=== PATIENT | female | born 1965 | race Caucasian/White ===

== ENCOUNTER 2024-04-07 14:48 | Outpatient (AMB) | payer OTHER, SELFPAY ==
--- NOTE | 2024-04-07 14:57 | A.OFFPC_ITS ---
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 Machine Required: No Allergies Sulfa (Sulfonamide Antibiotics) Allergy (Severe, Verified 04/07/24 15:00) Vomiting Tobacco use date assessed: 04/07/24 Dental Screening Dental Screen Date: 04/07/24 Did you have a dental visit in the last 12 months?: Yes Did you have a dental problem in the last 6 months where you did not have access to dental care?: No Was dental information given to patient?: Patient has dentist HPI HPI Comments History of Present Illness Details Patient is a 58-year-old female with a history of migraines insomnia, seizures, hypertension, hip pain, left breast cancer and SVT presenting for follow-up Heme/Onc: Recent left breast cancer. Stage II. Chest surgeon and underwent surgery. She is up-to-date Migraine headaches are stable. Ten Fioricet every 4 hours as needed for migraine flares. She saw Neurology years ago. Fioricet is the only medication that has worked for her. Her past treatments have included Imitrex, amitriptyline, nortriptyline, gabapentin all of which were ineffective. She is on a chronic calcium channel tray for history of SVT which did not affect the frequency of her headaches. Her headaches are at the neck and go up behind the right eye and can become severe. She uses clobetasol, hot packs. She has nausea and, with her headaches and sensitivity to light and sound. She does take ondansetron as needed for stomach upset. She has a history of remote seizures. She saw Neurology and her workup was negative. Initially she was on Keppra but it was discontinued. She has no interval seizures CV: On Cardizem, hydrochlorothiazide. Her blood pressure is well-controlled. She had 1 episode of SVT a couple years ago and was hospitalized for a few days. She does follow with [facility]. Insomnia on long-term Ambien 10 mg nightly. Musculoskeletal: She has a history of left hip pain which radiates to the anterior thigh. She has had x-rays performed Colonoscopy: Performed at age 49 ROS CONSTITUTIONAL: Denies weight loss, fever and chills. HEENT: Denies changes in vision and hearing. RESPIRATORY: Denies SOB and cough. CV: Denies palpitations and CP GI: Denies abdominal pain, nausea, vomiting and diarrhea. : Denies dysuria and urinary frequency. MSK: Denies new myalgia and joint pain. SKIN: Denies rash and pruritus. NEUROLOGICAL: Denies headache PSYCHIATRIC: Denies recent changes in mood. PHYSICAL EXAM: GENERAL: Alert and oriented x 3. NAD EYES: EOMI. Anicteric. HENT: Moist mucous membranes. No scleral icterus. No cervical lymphadenopathy. LUNGS: Clear to auscultation bilaterally. CARDIOVASCULAR: Regular rate and rhythm. No murmur. No JVD. ABDOMEN: Soft, non-tender +bs EXTREMITIES: No edema. Non-tender. SKIN: No rashes or lesions. Warm. NEUROLOGIC: No focal neurological deficits. CN II-XII grossly intact PSYCHIATRIC: Cooperative. Appropriate mood and affect [facility] Medical History SVT (supraventricular tachycardia) Right hip pain History of seizure Cough Breast cancer Blood pressure elevated without history of HTN Surgical History H/O breast biopsy S/P right rotator cuff repair Family History Mother Cancer of breast Uterine cancer Father Alzheimer dementia Hx of CABG CAD (coronary artery disease) Myocardial infarction Brother Type 2 diabetes mellitus Social History Housing: House Patient Tobacco Use Status: Never used Tobacco e-Cigarette/Vaping Use: Never Used Second Hand Smoke Exposure: No service: No Current occupational status: employed 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 Current occupational exposures/hazards: No Cognitive needs: No Hearing needs: No Vision needs: Yes (glasses) Questionnaire PHQ-9 Over the last 2 weeks, how often have you been bothered by any of the following problems? 1. Little interest or pleasure in doing things: not at all 2. Feeling down, depressed, or hopeless: not at all 3. Trouble falling or staying asleep, or sleeping too much: not at all 4. Feeling tired or having little energy: not at all 5. Poor appetite or overeating: not at all 6. Feeling bad about yourself - or that you are a failure or have let yourself or your family down: not at all 7. Trouble concentrating on things, such as reading the newspaper or watching television: not at all 8. Moving or speaking so slowly that other people could have noticed. Or the opposite - being so fidgety or restless that you have been moving around a lot more than usual: not at all 9. Thoughts that you would be better off or of hurting yourself in some way: not at all Total score: 0 Depression Screening Interpretation: Negative (neg) Depression Screening Done: Yes 76052 - PHQ-9 Billing: Yes Source: Developed by Drs. Freeman Kaye, Mariana Cruz, Darwin Hoffmann and colleagues, with an educational karthik from [employer]. Thrive Questionnaire Date Thrive assessed: 04/05/24 I am a: Patient What is your living situation today?: I have a steady place to live Within the past 12 months, did the food you bought not last and you didn't have the money to get more?: Never true Within the past 12 months, did you worry whether your food would run out before you got money to buy more?: Never true Do you have trouble paying for medicines?: No Do you have trouble getting transportation to medical appointments?: No Do you have trouble paying your heating and electricity bill?: No Do you have trouble taking care of your child, family member or friend?: No Do you have trouble with day-to-day activities such as bathing, preparing meals, shopping, managing finances, etc.?: No Are you currently unemployed and looking for a job?: No Are you interested in more education?: No Please select the resources that you would like help with: None Currently or been in a relationship where the following occur: No concerns reported THRIVE Score: 0 AUDIT C Alcohol Use Questionnaire (AUDIT-C) 1. How often do you have a drink containing alcohol?: 2-3 times a week 2. How many drinks containing alcohol do you have on a typical day when you are drinking?: 1 or 2 3. How often do you have six or more drinks on one occasion?: Less than monthly Total Score: 4 CALVIN-7 AMB Questionnaire CALVIN-7 Date CALVIN - 7 assessed: 04/07/24 Feeling nervous, anxious, or on edge: 0 = Not at all Not being able to stop or control worryin = Not at all Worrying too much about different things: 1 = Several days Trouble relaxin = Not at all Being so restless that it is hard to sit still: 0 = Not at all Feeling afraid as if something awful might happen: 0 = Not at all Source: Developed by Drs. Freeman Kaye, Mariana Cruz, Darwin Hoffmann and colleagues, with an educational karthik from [employer]. CALVIN-7 Assessment Billing CALVIN-7 Assessment Tool: CALVIN-7 Assessment 99055 Physical exam (Primary Care) Vital Signs: Last Vital Signs Temp 98.5 F 04/07/24 15:03 Pulse 73 04/07/24 15:03 Resp 12 04/07/24 15:03 BP 124/74 04/07/24 15:03 Pulse Ox 98 04/07/24 15:03 Oxygen Delivery Method Room Air 04/07/24 15:03 BMI result Body Mass Index 25.0 Tobacco/Smoking Status: Tobacco use Status Tobacco use date assessed 04/07/24 04/07/24 15:06 Patient Tobacco Use Status Never used Tobacco 04/07/24 15:06 e-Cigarette/Vaping Use Never Used 04/07/24 15:06 PHQ-9: PHQ-9 Score PHQ-9: Total score 0 04/16/24 13:46 Depression Screening Interpretation: Negative (neg) Thrive Assessment: Date of Thrive Assessment Date Thrive assessed 04/05/24 04/07/24 14:58 Currently or been in a relationship where the following occur: No concerns reported Assessment and Plan Assessment & Plan (1) Migraine: Code(s): G43.909 - Migraine, unspecified, not intractable, without status migrainosus Qualifiers: Migraine type: migraine (< 15 days per month) with aura Status ran rainosus presence: without status migrainosus Intractability: not intractable Qualified Code(s): G43.109 - Migraine with aura, not intractable, without status migrainosus Plan: stable (2) Insomnia: Code(s): G47.00 - Insomnia, unspecified Qualifiers: Insomnia type: primary Qualified Code(s): F51.01 - Primary insomnia Plan: stable on zolpidem (3) Hypertension: Code(s): I10 - Essential (primary) hypertension Qualifiers: Hypertension type: primary hypertension Qualified Code(s): I10 - Esse ntial (primary) hypertension Plan: stable on current medications Orders: Orders Comprehensive Met. Panel 04/07/24 Z13.0 - Encounter for screening for diseases of the blood and blood-forming organs and certain disorders involving the immune mechanism, Z13.228 - Encounter for screening for other metabolic disorders, Z13.220 - Encounter for screening for lipoid disorders Lipid Panel 04/07/24 Z13.0 - Encounter for screening for diseases of the blood and blood-forming organs and certain disorders involving the immune mechanism, Z13.228 - Encounter for screening for other metabolic disorders, Z13.220 - Encou nter for screening for lipoid disorders Complete Blood Count Auto Diff 04/07/24 Z13.0 - Encounter for screening for diseases of the blood and blood-forming organs and certain disorders involving the immune mechanism, Z13.228 - Encounter for screening for other metabolic disorders, Z13.220 - Encounter for screening for lipoid disorders TSH reflex Free T4 04/07/24 Z13.0 - Encounter for screening for diseases of the blood and blood-forming organs and certain disorders involving the immune mechanism, Z13.228 - Encounter for screening for other metabolic disorders, Z13.220 - Encounter for screening for lipoid disorders Medications: Changed From etiybpaefl-znpcvsltswyfp-uwxe 50-325-40 mg 1 tab PO Q6H 28 days PRN 112 tabs 0RF headache To wddjbamidj-aldzhiykdpbaf-vssz 50-325-40 mg 1-2 tab oral every 4 hours as needed for headache for 28 days 168 tabs 5RF headache 28 days Refilled zolpidem 10 mg PO BEDTIME PRN 60 tabs 5RF sleep G47.00 - Insomnia, unspecified Coding Level of Care Code Est Pt Level 5 (56823) Diagnoses Migraine with aura and without status migrainosus, not intractable G43.109 Migraine type: migraine (< 15 days per month) with aura Status migrainosus presence: without status migrainosus Intractability: not intractable Primary insomnia F51.01 Insomnia type: primary Primary hypertension I10 Hypertension type: primary hypertension Additional Codes CALVIN-7 Assessment Billing - CALVIN-7 Assessment Tool: CALVIN-7 Assessment [id number] ([id number]) Time Spent (min) 43
[2024-04-07 15:03] VITALS: BP 124/74; PULSE 73; RESP 12; TEMP 36.9; O2SAT 98; BMI 25.0
== END 2024-04-07 15:32 | disposition home or self-care (01) ==
PROVIDERS: PCP Internal Medicine; Visit Provider Internal Medicine
DX: G43.109 Migraine with aura, not intractable, without status migrainosus (principal); F51.01 Primary insomnia; I10 Essential (primary) hypertension

== ENCOUNTER → 2024-04-07 14:48 | Outpatient (BNVA) | payer OTHER, SELFPAY | PROVIDERS: PCP Internal Medicine; Visit Provider Internal Medicine | DX: G43.109 Migraine with aura, not intractable, without status migrainosus (principal); F51.01 Primary insomnia; I10 Essential (primary) hypertension; Z79.899 Other long term (current) drug therapy | CPT/HCPCS: 96127 ==

== ENCOUNTER 2024-09-24 11:22 | Outpatient (AMB) | payer OTHER, SELFPAY ==
--- NOTE | 2024-09-24 11:46 | A.OFFPC_ITS ---
Vital Signs 09/24/24 11:52 Height 5 ft 2.4 in Weight 140 lb BMI 25.3 BP 126/72 Blood Pressure Location Lt brachial Position Sitting Respiration 12 Pulse 72 Pulse Source Pulse Oximeter Temp 98 F Temp Source Oral Pulse Oximetry (%) 99 Oxygen Delivery Method Room Air Intake Visit Reasons: strep/ear infection Intake Note: Congestion and cough since July 2024. Throat pain worse past three days. Right ear pain started three days ago. Left ear pain started yesterday. Allergies Sulfa (Sulfonamide Antibiotics) Allergy (Severe, Verified 04/07/24 15:00) Vomiting Tobacco use date assessed: 04/07/24 Dental Screening Dental Screen Date: 04/07/24 HPI HPI Comments History of Present Illness Details Patient is a 58-year-old female with a history of migraines insomnia, seizures, hypertension, hip pain, left breast cancer and SVT presenting for sick visit Reports four week history of sinus congestion, ear fullness, PND and cough. Has felt more fatigued. OTC medications without sufficient relief Heme/Onc: Recent left breast cancer. Stage II. Chest surgeon and underwent surgery. She is up-to-date Migraine headaches are stable. Ten Fioricet every 4 hours as needed for migraine flares. She saw Neurology years ago. Fioricet is the only medication that has worked for her. Her past treatments have included Imitrex, amitriptyline, nortriptyline, gabapentin all of which were ineffective. She is on a chronic calcium channel tray for history of SVT which did not affect the frequency of her headaches. Her headaches are at the neck and go up behind the right eye and can become severe. She uses clobetasol, hot packs. She has n ausea and, with her headaches and sensitivity to light and sound. She does take ondansetron as needed for stomach upset. She has a history of remote seizures. She saw Neurology and her workup was negative. Initially she was on Keppra but it was discontinued. She has no interval seizures CV: On Cardizem, hydrochlorothiazide. Her blood pressure is well-controlled. She had 1 episode of SVT a couple years ago and was hospitalized for a few days. She does follow with [facility]. Insomnia on long-term Ambien 10 mg nightly. Musculoskeletal: She has a history of left hip pain which radiates to the anterior thigh. She has had x-rays performed Colonoscopy: Performed at age 49 ROS see HPI PHYSICAL EXAM: GENERAL: Alert and oriented x 3. NAD EYES: EOMI. Anicteric. HENT: Moist mucous membranes. No scleral icterus. Bilateral middle ear effusions. Normal TM, maxillary tenderness with boggy nasal mucosa LUNGS: Clear to auscultation bilaterally. CARDIOVASCULAR: Regular rate and rhythm. No murmur. No JVD. ABDOMEN: Soft, non-tender +bs EXTREMITIES: No edema. Non-tender. SKIN: No rashes or lesions. Warm. NEUROLOGIC: No focal neurological deficits. CN II-XII grossly intact PSYCHIATRIC: Cooperative. Appropriate mood and affect [facility] Medical History SVT (supraventricular tachycardia) Right hip pain History of seizure Cough Breast cancer Blood pressure elevated without history of HTN Surgical History H/O breast biopsy S/P right rotator cuff repair Family History Mother Cancer of breast Uterine cancer Father Alzheimer dementia Hx of CABG CAD (coronary artery disease) Myocardial infarction Brother Type 2 diabetes mellitus Social History Housing: House Patient Tobacco Use Status: Never used Tobacco e-Cigarette/Vaping Use: Never Used Second Hand Smoke Exposure: No service: No Current occupational status: employed 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 Current occupational exposures/hazards: No Cognitive needs: No Hearing needs: No Vision needs: Yes (glasses) Questionnaire PHQ-9 Over the last 2 weeks, how often have you been bothered by any of the following problems? 1. Little interest or pleasure in doing things: not at all 2. Feeling down, depressed, or hopeless: not at all 3. Trouble falling or staying asleep, or sleeping too much: not at all 4. Feeling tired or having little energy: not at all 5. Poor appetite or overeating: not at all 6. Feeling bad about yourself - or that you are a failure or have let yourself or your family down: not at all 7. Trouble concentrating on things, such as reading the newspaper or watching television: not at all 8. Moving or speaking so slowly that other people could have noticed. Or the opposite - being so fidgety or restless that you have been moving around a lot more than usual: not at all 9. Thoughts that you would be better off or of hurting yourself in some way: not at all Total score: 0 Depression Screening Interpretation: Negative Depression Screening Done: Yes 02109 - PHQ-9 Billing: Yes Source: Developed by Drs. Freeman Kaye, Mariana Cruz, Darwin Hoffmann and colleagues, with an educational karthik from [employer]. Thrive Questionnaire Date Thrive assessed: 09/24/24 I am a: Patient What is your living situation today?: I have a steady place to live Within the past 12 months, did the food you bought not last and you didn't have the money to get more?: Never true Within the past 12 months, did you worry whether your food would run out before you got money to buy more?: Never true Do you have trouble paying for medicines?: No Do you have trouble getting transportation to medical appointments?: No Do you have trouble paying your heating and electricity bill?: No Do you have trouble taking care of your child, family member or friend?: No Do you have trouble with day-to-day activities such as bathing, preparing meals, shopping, managing finances, etc.?: No Are you currently unemployed and looking for a job?: No Are you interested in more education?: No Please select the resources that you would like help with: None Currently or been in a relationship where the following occur: No concerns reported THRIVE Score: 0 AUDIT C Alcohol Use Questionnaire (AUDIT-C) 1. How often do you have a drink containing alcohol?: 2-4 times a month 2. How many drinks containing alcohol do you have on a typical day when you are drinking?: 1 or 2 3. How often do you have six or more drinks on one occasion?: Never Total Score: 2 CALVIN-7 AMB Questionnaire CALVIN-7 Date CALVIN - 7 assessed: 04/07/24 Feeling nervous, anxious, or on edge: 0 = Not at all Not being able to stop or control worryin = Not at all Worrying too much about different things: 0 = Not at all Trouble relaxin = Not at all Being so restless that it is hard to sit still: 0 = Not at all Becoming easily annoyed or irritable: 0 = Not at all Feeling afraid as if something awful might happen: 0 = Not at all Total CALVIN-7 score (0-4 normal; 5-9 mild; 10-14 moderate; 15-21 severe): 0 Source: Developed by Drs. Freeman Kaye, Mariana Cruz, Darwin Hoffmann and colleagues, with an educational karthik from [employer]. Physical exam (Primary Care) Vital Signs: Last Vital Signs Temp 98 F 09/24/24 11:52 Pulse 72 09/24/24 11:52 Resp 12 09/24/24 11:52 BP 126/72 09/24/24 11:52 Pulse Ox 99 09/24/24 11:52 Oxygen Delivery Method Room Air 09/24/24 11:52 BMI result Body Mass Index 25.3 Tobacco/Smoking Status: Tobacco use Status Tobacco use date assessed 04/07/24 09/24/24 11:49 Patient Tobacco Use Status Never used Tobacco 09/24/24 11:49 e-Cigarette/Vaping Use Never Used 09/24/24 11:49 PHQ-9: PHQ-9 Score PHQ-9: Total score 0 09/24/24 12:03 Depression Screening Interpretation: Negative Thrive Assessment: Date of Thrive Assessment Date Thrive assessed 09/24/24 09/24/24 11:49 Currently or been in a relationship where the following occur: No concerns reported Results AMB Rapid Strep AMB Rapid Strep Negative Last Edit by Lorena Monahan CMA on 09/24/24 11:5 8 Results Reviewed Results Reviewed: Laboratory Last Values Strep Scn Rapid Clinic Negative 09/24/24 11:55 Coding Level of Care Code Est Pt Level 4 (01040) Diagnoses Subacute maxillary sinusitis J01.00 Sinusitis location: maxillary Chronicity: subacute Additional Codes PHQ-9 - 49435 - PHQ-9 Billing: Yes ([id number]) Assessment & Plan Assessment & Plan (1) Sinusitis: Code(s): J32.9 - Chronic sinusitis, unspecified Category: Medical Qualifiers: Sinusitis location: maxillary Chronicity: subacute Qualified Code(s): J01.00 - Acute maxillary sinusitis, unspecified Plan: Doxycycline and prednisone sent She will follow up for persistent or worsening symptoms Orders: Orders AMB Rapid Strep Screen Today J02.9 - Acute pharyngitis, unspecified Medications: New diltiazem HCl CD 120 mg PO DAILY 90 caps 3RF doxycycline hyclate 100 mg PO BID 20 tabs 0RF 10 days prednisone 40 mg (2 x 20 mg) PO DAILY 14 tabs 0RF 7 days Refilled zolpidem 10 mg PO BEDTIME PRN 60 tabs 5RF sleep G47.00 - Insomnia, unspecified
[2024-09-24 11:52] VITALS: BP 126/72; PULSE 72; RESP 12; TEMP 36.6; O2SAT 99; BMI 25.3
== END 2024-09-24 12:13 | disposition home or self-care (01) ==
PROVIDERS: PCP Internal Medicine; Visit Provider Internal Medicine
DX: J01.00 Acute maxillary sinusitis, unspecified (principal); J02.9 Acute pharyngitis, unspecified

== ENCOUNTER → 2024-09-24 11:22 | Outpatient (BNVA) | payer OTHER, SELFPAY | PROVIDERS: PCP Internal Medicine; Visit Provider Internal Medicine | DX: J01.00 Acute maxillary sinusitis, unspecified (principal); J02.9 Acute pharyngitis, unspecified | CPT/HCPCS: 87880; 96127 ==

== ENCOUNTER 2024-11-03 13:33 | Outpatient (AMB) | payer OTHER, SELFPAY ==
--- NOTE | 2024-11-03 13:42 | A.OFFPC_ITS ---
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 Stage II. Follows with [facility]. She is up-to-date. Onc in December with mammogram thereafter Migraine headaches are stable in frequent and severity. Fioricet every 4 hours as needed for migraine flares. She saw Neurology remotely. Fioricet is the only medication that has worked for her. Her past treatments have included Imitrex, amitriptyline, nortriptyline, gabapentin all of which were ineffective. She is on a chronic calcium channel tray for history of SVT which did not affect the frequency of her headaches. Her headaches are at the neck and go up behind the right eye and can become severe. She uses clobetasol, hot packs. She has nausea and, with her headaches and sensitivity to light and sound. She does take ondansetron as needed for stomach upset. She has a history of remote seizures. She saw Neurology and her workup was negative. Initially she was on Keppra but it was discontinued. She has no interval seizures CV: On Cardizem, hydrochlorothiazide. Her blood pressure is well-controlled. She had 1 episode of SVT a couple years ago and was hospitalized for a few days. She does follow with [facility]. Insomnia on long-term Ambien 10 mg nightly. Musculoskeletal: She has a history of left hip pain which radiates to the anterior thigh. She has had x-rays performed. This has been stable. Colonoscopy: Performed at age 49. Referred today. ROS see HPI PHYSICAL EXAM: GENERAL: Alert and oriented x 3. NAD EYES: EOMI. Anicteric. HENT: Moist mucous membranes. No scleral icterus. LUNGS: Clear to auscultation bilaterally. CARDIOVASCULAR: Regular rate and rhythm. No murmur. No JVD. ABDOMEN: Soft, non-tender +bs EXTREMITIES: No edema. Non-tender. SKIN: No rashes or lesions. Warm. NEUROLOGIC: No focal neurological deficits. CN II-XII grossly intact PSYCHIATRIC: Cooperative. Appropriate mood and affect [facility] Medical History SVT (supraventricular tachycardia) Right hip pain History of seizure Cough Breast cancer Blood pressure elevated without history of HTN Surgical History H/O breast biopsy S/P right rotator cuff repair Family History Mother Cancer of breast Uterine cancer Father Alzheimer dementia Hx of CABG CAD (coronary artery disease) Myocardial infarction Brother Type 2 diabetes mellitus Social History Housing: House Patient Tobacco Use Status: Never used Tobacco e-Cigarette/Vaping Use: Never Used Second Hand Smoke Exposure: No service: No Current occupational status: employed 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 Current occupational exposures/hazards: No Cognitive needs: No Hearing needs: No Vision needs: Yes (glasses) Questionnaire PHQ-9 Over the last 2 weeks, how often have you been bothered by any of the following problems? 1. Little interest or pleasure in doing things: not at all 2. Feeling down, depressed, or hopeless: not at all 3. Trouble falling or staying asleep, or sleeping too much: not at all 4. Feeling tired or having little energy: not at all 5. Poor appetite or overeating: not at all 6. Feeling bad about yourself - or that you are a failure or have let yourself or your family down: not at all 7. Trouble concentrating on things, such as reading the newspaper or watching television: not at all 8. Moving or speaking so slowly that other people could have noticed. Or the opposite - being so fidgety or restless that you have been moving around a lot more than usual: not at all 9. Thoughts that you would be better off or of hurting yourself in some way: not at all Total score: 0 Depression Screening Interpretation: Negative Depression Screening Done: Yes 68119 - PHQ-9 Billing: Yes Source: Developed by Drs. Freeman Kaye, Mariana Cruz, Darwin Hoffmann and colleagues, with an educational karthik from [employer]. Thrive Questionnaire Date Thrive assessed: 11/03/24 I am a: Patient What is your living situation today?: I have a steady place to live Within the past 12 months, did the food you bought not last and you didn't have the money to get more?: Never true Within the past 12 months, did you worry whether your food would run out before you got money to buy more?: Never true Do you have trouble paying for medicines?: No Do you have trouble getting transportation to medical appointments?: No Do you have trouble paying your heating and electricity bill?: No Do you have trouble taking care of your child, family member or friend?: No Do you have trouble with day-to-day activities such as bathing, preparing meals, shopping, managing finances, etc.?: No Are you currently unemployed and looking for a job?: No Are you interested in more education?: No Please select the resources that you would like help with: None Currently or been in a relationship where the following occur: No concerns reported THRIVE Score: 0 AUDIT C Alcohol Use Questionnaire (AUDIT-C) 1. How often do you have a drink containing alcohol?: 2-3 times a week 2. How many drinks containing alcohol do you have on a typical day when you are drinking?: 1 or 2 3. How often do you have six or more drinks on one occasion?: Never Total Score: 3 CALVIN-7 AMB Questionnaire CALVIN-7 Date CALVIN - 7 assessed: 11/03/24 Feeling nervous, anxious, or on edge: 0 = Not at all Not being able to stop or control worryin = Not at all Worrying too much about different things: 0 = Not at all Trouble relaxin = Not at all Being so restless that it is hard to sit still: 0 = Not at all Becoming easily annoyed or irritable: 0 = Not at all Feeling afraid as if something awful might happen: 0 = Not at all Total CALVIN-7 score (0-4 normal; 5-9 mild; 10-14 moderate; 15-21 severe): 0 Source: Developed by Drs. Freeman Kaye, Mariana Cruz, Darwin Hoffmann and colleagues, with an educational karthik from [employer]. CALVIN-7 Assessment Billing CALVIN-7 Assessment Tool: CALVIN-7 Assessment 26901 Physical exam (Primary Care) Vital Signs: Last Vital Signs Pulse 74 11/03/24 13:45 Resp 12 11/03/24 13:45 BP 128/80 11/03/24 13:45 Pulse Ox 97 11/03/24 13:45 Oxygen Delivery Method Room Air 11/03/24 13:45 BMI result Body Mass Index 24.6 Tobacco/Smoking Status: Tobacco use Status Tobacco use date assessed 04/07/24 11/03/24 13:47 Patient Tobacco Use Status Never used Tobacco 11/03/24 13:47 e-Cigarette/Vaping Use Never Used 11/03/24 13:47 PHQ-9: PHQ-9 Score PHQ-9: Total score 0 11/03/24 14:03 Depression Screening Interpretation: Negative Thrive Assessment: Date of Thrive Assessment Date Thrive assessed 11/03/24 11/03/24 13:47 Currently or been in a relationship where the following occur: No concerns reported Coding Level of Care Code Est Pt Prev Care 40-64y(11565) Diagnoses Physical exam Z00.00 Primary hypertension I10 Hypertension type: primary hypertension Migraine with aura and without status migrainosus, not intractable G43.109 Intractability: not intractable Migraine type: migraine (< 15 days per month) with aura Status migrainosus presence: without status migrainosus Primary insomnia F51.01 Insomnia type: primary Additional Codes CALVIN-7 Assessment Billing - CALVIN-7 Assessment Tool: CALVIN-7 Assessment 14093 ([id number]) PHQ-9 - 74442 - PHQ-9 Billing: Yes ([id number]) Assessment & Plan Assessment & Plan (1) Physical exam: Code(s): Z00.00 - Encounter for general adult medical examination without abnormal findings Category: Medical (2) Hypertension: Code(s): I10 - Essential (primary) hypertension Category: Medical Qualifiers: Hypertension type: primary hypertension Qualified Code(s): I10 - Essential (primary) hypertension (3) Migraine: Code(s): G43.909 - Migraine, unspecified, not intractable, without status migrainosus Category: Medical Qualifiers: Intractability: not intractable Migraine type: migraine (< 15 days per month) with aura Status migrainosus presence: without status migrainosus Qualified Code(s): G43.109 - Migraine with aura, not intractable, without status migrainosus (4) Insomnia: Code(s): G47.00 - Insomnia, unspecified Category: Medical Qualifiers: Insomnia type: primary Qualified Code(s): F51.01 - Primary insomnia Plan 59 year old for physical exam Interval history reviewed Chronic medical conditions are stable. Blood pressure is well controlled Insomnia is stable on zolpidem Labs ordered Referral to GI placed for colonoscopy Orders: Orders Complete Blood Count Auto Diff Today Z12.11 - Encounter for screening for malignant neoplasm of colon, Z13.220 - Encounter for screening for lipoid disorders, Z13.228 - Encounter for screening for other metabolic disorders Comprehensive Met. Panel Today Z12.11 - Encounter for screening for malignant neoplasm of colon, Z13.220 - Encounter for screening for lipoid disorders, Z13.228 - Encounter for screening for other metabolic disorders Lipid Panel Today Z12.11 - Encounter for screening for malignant neoplasm of colon, Z13.220 - Encounter for screening for lipoid disorders, Z13.228 - Encounter for screening for other metabolic disorders TSH reflex Free T4 Today Z12.11 - Encounter for screening for malignant neoplasm of colon, Z13.220 - Encounter for screening for lipoid disorders, Z13.228 - Encounter for screening for other metabolic disorders Referrals Gastroenterology Referral Z12.11 - Encounter for screening for malignant neoplasm of colon
[2024-11-03 13:45] VITALS: BP 128/80; PULSE 74; RESP 12; O2SAT 97; BMI 24.6
== END 2024-11-03 14:18 | disposition home or self-care (01) ==
LOC: HO.HMCFM 13:33
PROVIDERS: PCP Internal Medicine; Visit Provider Internal Medicine
DX: Z00.00 Encounter for general adult medical examination without abnormal findings (principal); I10 Essential (primary) hypertension; G43.109 Migraine with aura, not intractable, without status migrainosus; F51.01 Primary insomnia

== ENCOUNTER → 2024-11-03 13:33 | Outpatient (BNVA) | payer OTHER, SELFPAY | PROVIDERS: PCP Internal Medicine; Visit Provider Internal Medicine | DX: Z00.00 Encounter for general adult medical examination without abnormal findings (principal); I10 Essential (primary) hypertension; G43.109 Migraine with aura, not intractable, without status migrainosus; F51.01 Primary insomnia; Z85.3 Personal history of malignant neoplasm of breast; Z79.899 Other long term (current) drug therapy | CPT/HCPCS: 96127 ==

== ENCOUNTER 2025-04-09 10:06 | Outpatient (AMB) | payer OTHER, SELFPAY ==
--- NOTE | 2025-04-09 10:10 | MHC.OFFVIS ---
Vital Signs 04/09/25 10:15 Height 5 ft 3 in Weight 125 lb BMI 22.1 BP 132/82 Blood Pressure Location Rt brachial Position Sitting Pulse 82 Pulse Source Pulse Oximeter Pulse Oximetry (%) 99 Oxygen Delivery Method Room Air Intake Visit Reasons: [place] screening Intake Note: New pt for recall colo screening. Last ~ 10 years ago. CC: Pt denies any GI sx or concerns at this time. Blueprint Cutter Required: No Accompanied by: Self / Same As Patient Allergies Sulfa (Sulfonamide Antibiotics) Allergy (Severe, Verified 04/09/25 10:10) Vomiting HPI HPI [place] screening: Details: 59 year old? female with past medical history of hypertension, migraine headaches, insomnia is here today for pre colonoscopy screening.? Patient was sent to us by her PCP.? Last colonoscopy 10 years ago.? Patient denies any gastrointestinal symptoms in the past or at present.? Denies any personal or family history of gastrointestinal disease, colon polyps, or CRC.? Denies history of difficulty with sedation or anesthesia in the past.? Negative for history of sleep apnea.? Denies any history of cardiac, renal, pulmonary, or hepatic disease.?? No history of infectious? diseases like hepatitis A, B, C, HIV or tuberculosis.? Patient is not on any anticoagulation PFSH Medical History SVT (supraventricular tachycardia) Right hip pain History of seizure Cough Breast cancer Blood pressure elevated without history of HTN Surgical History History of colonoscopy H/O breast biopsy S/P right rotator cuff repair Family History Mother Cancer of breast Uterine cancer Father Alzheimer dementia Hx of CABG CAD (coronary artery disease) Myocardial infarction Brother Type 2 diabetes mellitus Social History Housing: House Patient Tobacco Use Status: Never used Tobacco e-Cigarette/Vaping Use: Never Used Second Hand Smoke Exposure: No service: No Current occupational status: employed 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 Current occupational exposures/hazards: No Cognitive needs: No Hearing needs: No Vision needs: Yes (glasses) Review of Systems Const Denies weight gain and Denies weight loss ENT Reports no additional complaints, Denies dysphagia and Denies odynophagia Card Reports no additional complaints Resp Reports no additional complaints GI Denies abdominal pain, Denies belching, Denies melena, Denies bloating, Denies change in bowel habits, Denies dysphagia, Denies excessive flatus, Denies dyspepsia, Denies heartburn, Denies diarrhea, Denies loose stools, Denies nausea, Denies odynophagia and Denies vomiting Musc Reports no additional complaints Neuro Reports no additional complaints Psych Reports no additional complaints Endo Reports no additional complaints Physical Exam Vital Signs: BMI result Body Mass Index 22.1 Const General: healthy appearing, no acute distress and well developed Nutritional Appearance: well nourished Orientation/consciousness: patient oriented x3 Resp Effort & Inspection: normal respiratory effort, able to speak in complete sentences, no tracheal deviation and symmetric chest movement Auscultation: clear to auscultation bilaterally Cardio Rate: regular rate GI Inspection: Yes normal to inspection and No distended Palpation (GI): Soft to palpation, not firm, nontender and No hepatosplenomegaly present Auscultation: normal bowel sounds General: Yes no CVA tenderness Back/Spine/Pelvis Back: no CVA tenderness Skin General skin exam: elasticity normal, turgor normal and dry skin Neuro General: patient oriented x3 Psych Appearance: grossly normal Mental Status: mental status grossly normal Assessment & Plan Assessment & Plan (1) Screening for colon cancer: Code(s): Z12.11 - Encounter for screening for malignant neoplasm of colon Category: Medical Plan Patient denies any GI, cardiac or respiratory symptoms.? Denies any issues with anesthesia in the past.? Denies any history of sleep apnea.? No history infectious diseases in the past or present.? Not on any anticoagulation therapy.? No family or personal history of colon cancer or polyps.? Patient denies melena, hematochezia, unintentional weight loss or ribbon like stools.? Discussed at length the pre-procedure,? prep, diet & medications as well as what to expect prior, during and after the procedure.?? Stressed the importance of good bowel prep.? Recommended the use of Vaseline or Calmoseptine OTC & baby wipes with bowel movements to promote comfort.? ?Patient verbalizes understanding and agrees to plan of care.? She was given the opportunity to ask questions and all questions answered.? We will see her after the procedure.? Orders: Referrals GI Procedure Notification Z12.11 - Encounter for screening for malignant neoplasm of colon Medications: New bisacodyl (Dulcolax (bisacodyl)) take 4 tabs at noon the day before your colonoscopy 20 mg (4 x 5 mg) PO ONCE 4 tabs 0RF constipation 1 day Z12.11 - Encounter for screening for malignant neoplasm of colon polyethylene glycol 3350 (Miralax) As directed by gastroenterology department at [facility] 238 grams PO ONCE 238 grams 0RF Z12.11 - Encounter for screening for malignant neoplasm of colon Coding Level of Care Code New Pt Level 3 (16057) Diagnoses Screening for colon cancer Z12.11 Time Spent (min) 40 Comment 30 minutes spent with patient and additional 10 minutes spent reviewing her records
[2025-04-09 10:15] VITALS: BP 132/82; PULSE 82; O2SAT 99; BMI 22.1
== END 2025-04-09 11:21 | disposition home or self-care (01) ==
LOC: HO.HGI 10:06
PROVIDERS: PCP Internal Medicine; Visit Provider Nurse Practitioner Family
DX: Z01.818 Encounter for other preprocedural examination (principal); Z12.11 Encounter for screening for malignant neoplasm of colon
CPT/HCPCS: 99203

== ENCOUNTER 2025-05-04 11:06 | Outpatient (AMB) | payer OTHER, SELFPAY ==
[2025-05-04 11:12] VITALS: BP 142/90; PULSE 87; RESP 12; O2SAT 97; BMI 22.2
--- NOTE | 2025-05-04 11:12 | MHC.PC.OV ---
Vital Signs 05/04/25 11:12 05/04/25 11:21 Height 5 ft 3 in Weight 125 lb 8 oz BMI 22.2 BP 142/90 H 120/84 Blood Pressure Location Lt brachial Lt brachial Position Sitting Sitting Respiration 12 Pulse 87 Pulse Source Pulse Oximeter Pulse Oximetry (%) 97 Oxygen Delivery Method Room Air Intake Visit Reasons: f/up - see comments Intake Note: Follow up [employer] Web Developer Required: No Allergies Sulfa (Sulfonamide Antibiotics) Allergy (Severe, Verified 05/04/25 11:12) Vomiting Tobacco use date assessed: 04/07/24 Dental Screening Dental Screen Date: 04/07/24 HPI HPI Comments History of Present Illness Details Patient is a 59-year-old female with a history of migraines insomnia, seizures, hypertension, hip pain, left breast cancer and SVT presenting for follow up Heme/Onc: History of left breast cancer. Stage II. Follows with [facility]. She is up-to-date. Neuro: Migraine headaches are stable in frequent and severity. Fioricet every 4 hours as needed for migraine flares. She saw Neurology remotely. Fioricet is the only medication that has worked for her. Her past treatments have included Imitrex, amitriptyline, nortriptyline, gabapentin all of which were ineffective. She is on a chronic calcium channel tray for history of SVT which did not affect the frequency of her headaches. Her headaches are at the neck and go up behind the right eye and can become severe. She uses clobetasol, hot packs. She has nausea and, with her headaches and sensitivity to light and sound. She does take ondansetron as needed for stomach upset. She has a history of remote seizures. She saw Neurology and her workup was negative. Initially she was on Keppra but it was discontinued. She has no interval seizures CV: On Cardizem, hydrochlorothiazide. 120/84. She had 1 episode of SVT a couple years ago and was hospitalized for a few days. She does follow with [facility]. Insomnia on long-term Ambien 10 mg nightly. Musculoskeletal: She has a history of left hip pain which radiates to the anterior thigh. She has had x-rays performed. This has been stable. Colonoscopy: Performed at age 49. Referred today. ROS see HPI PHYSICAL EXAM: GENERAL: Alert and oriented x 3. NAD EYES: EOMI. Anicteric. HENT: Moist mucous membranes. No scleral icterus. LUNGS: Clear to auscultation bilaterally. CARDIOVASCULAR: Regular rate and rhythm. No murmur. No JVD. ABDOMEN: Soft, non-tender +bs EXTREMITIES: No edema. Non-tender. SKIN: No rashes or lesions. Warm. NEUROLOGIC: No focal neurological deficits. CN II-XII grossly intact PSYCHIATRIC: Cooperative. Appropriate mood and affect [facility] Medical History SVT (supraventricular tachycardia) Right hip pain History of seizure Cough Breast cancer Blood pressure elevated without history of HTN Surgical History History of colonoscopy H/O breast biopsy S/P right rotator cuff repair Family History Mother Cancer of breast Uterine cancer Father Alzheimer dementia Hx of CABG CAD (coronary artery disease) Myocardial infarction Brother Type 2 diabetes mellitus Social History Housing: House Alcohol intake: current Patient Tobacco Use Status: Never used Tobacco e-Cigarette/Vaping Use: Never Used Second Hand Smoke Exposure: No service: No Current occupational status: employed 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 Current occupational exposures/hazards: No Cognitive needs: No Hearing needs: No Vision needs: Yes (glasses) Questionnaire Thrive Questionnaire Date Thrive assessed: 09/24/24 I am a: Patient What is your living situation today?: I have a steady place to live Within the past 12 months, did the food you bought not last and you didn't have the money to get more?: Never true Within the past 12 months, did you worry whether your food would run out before you got money to buy more?: Never true Do you have trouble paying for medicines?: No Do you have trouble getting transportation to medical appointments?: No Do you have trouble paying your heating and electricity bill?: No Do you have trouble taking care of your child, family member or friend?: No Do you have trouble with day-to-day activities such as bathing, preparing meals, shopping, managing finances, etc.?: No Are you currently unemployed and looking for a job?: No Are you interested in more education?: No Please select the resources that you would like help with: None Currently or been in a relationship where the following occur: No concerns reported THRIVE Score: 0 CALVIN-7 AMB Questionnaire CALVIN-7 Date CALVIN - 7 assessed: 11/03/24 Source: Developed by Drs. Freeman Kaye, Mariana Cruz, Darwin Hoffmann and colleagues, with an educational karthik from [email or web address]. Physical exam (Primary Care) Vital Signs: Last Vital Signs Pulse 87 05/04/25 11:12 Resp 12 05/04/25 11:12 BP 120/84 05/04/25 11:21 Pulse Ox 97 05/04/25 11:12 Oxygen Delivery Method Room Air 05/04/25 11:12 BMI result Body Mass Index 22.2 Tobacco/Smoking Status: Tobacco use Status Tobacco use date assessed 04/07/24 05/04/25 11:18 Patient Tobacco Use Status Never used Tobacco 05/04/25 11:22 e-Cigarette/Vaping Use Never Used 05/04/25 11:22 Thrive Assessment: Date of Thrive Assessment Date Thrive assessed 09/24/24 05/04/25 11:18 Currently or been in a relationship where the following occur: No concerns reported Coding Level of Care Code Est Pt Level 4 (47069) Diagnoses Primary hypertension I10 Hypertension type: primary hypertension Migraine with aura and without status migrainosus, not intractable G43.109 Intractability: not intractable Migraine type: migraine (< 15 days per month) with aura Status migrainosus presence: without status migrainosus Primary insomnia F51.01 Insomnia type: primary Assessment & Plan Assessment & Plan (1) Hypertension: Code(s): I10 - Essential (primary) hypertension Category: Medical Qualifiers: Hypertension type: primary hypertension Qualified Code(s): I10 - Essential (primary) hypertension (2) Migraine: Code(s): G43.909 - Migraine, unspecified, not intractable, without status migrainosus Category: Medical Qualifiers: Intractability: not intractable Migraine type: migraine (< 15 days per month) with aura Status migrainosus presence: without status migrainosus Qualified Code(s): G43.109 - Migraine with aura, not intractable, without status migrainosus (3) Insomnia: Code(s): G47.00 - Insomnia, unspecified Category: Medical Qualifiers: Insomnia type: primary Qualified Code(s): F51.01 - Primary insomnia Plan 59 year old female for follow up Insomnia is stable on zolpidem Hypertension is well controlled on current medications Doxycycline short term for acne Medications: New doxycycline hyclate 100 mg PO BID 10 tabs 0RF Changed From [id number]-[id number]-[id number] 50-325-40 mg 1 - 2 tabs PO Q4H PRN 168 tabs 0RF pain G43.109 - Migraine with aura, not intractable, without status migrainosus To eqwoipnnnd-aexcusauwiahy-mnlz 50-325-40 mg 1 - 2 tabs PO Q4H PRN 168 tabs 3RF pain G43.109 - Migraine with aura, not intractable, without status migrainosus
[2025-05-04 11:21] VITALS: BP 120/84
== END 2025-05-04 11:33 | disposition home or self-care (01) ==
LOC: HO.HMCFM 11:06
PROVIDERS: PCP Internal Medicine; Visit Provider Internal Medicine
DX: I10 Essential (primary) hypertension (principal); G43.109 Migraine with aura, not intractable, without status migrainosus; F51.01 Primary insomnia

== ENCOUNTER 2025-07-02 08:17 | Day surgery (SDC) | payer OTHER, SELFPAY ==
--- NOTE | 2025-06-29 14:50 | P.CONAN_ITS ---
Documented by User: Laurie Farah NP 06/29/25 14:51 HPI - Anesthesia Eval Consult details Narrative: 59yo F for Colonoscopy SVT x 1 years ago. On cardizem. Follows [facility] Cardiology [facility] Active Problems Active Problems: All Active Problems Screening for colon cancer (Acute) Physical exam (Acute) Sinusitis (Acute) Hypertension (Acute) Screening for hyperlipidemia (Acute) Screening for metabolic disorder (Acute) Screening, deficiency anemia, iron (Acute) Migraine (Acute) Insomnia (Acute) Past Medical History Medical History (Updated 07/02/25 @ 09:08 by Yary Wilson RN) Migraines HTN (hypertension) SVT (supraventricular tachycardia) Right hip pain History of seizure Breast cancer Family History Family History Mother Cancer of breast Uterine cancer Father Alzheimer dementia Hx of CABG CAD (coronary artery disease) Myocardial infarction Brother Type 2 diabetes mellitus Surgical History Surgical History History of lumpectomy of left breast History of colonoscopy H/O breast biopsy S/P right rotator cuff repair Social History Social History Housing: House Alcohol intake: current Patient Tobacco Use Status: Never used Tobacco e-Cigarette/Vaping Use: Never Used Second Hand Smoke Exposure: No Use of substances other than those prescribed or required for medical reasons: No Are you DNR?: No Advance Directives: No Advance Directives Information Provided: Yes service: No Current occupational status: employed 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 Current occupational exposures/hazards: No Cognitive needs: No Hearing needs: No Vision needs: Yes (glasses) Meds Allergies Allergy/AdvReac Type Severity Reaction Status Date / Time Sulfa (Sulfonamide Allergy Severe Vomiting Verified 07/02/25 08:39 Antibiotics) Assessment and Plan Assessment Anesthesia Assessment: Chart Reviewed Documented by User: Tracie Dickinson MD 07/02/25 09:22 [facility] Past Medical History Medical History (Updated 07/02/25 @ 09:08 by Yary Wilson, RN) Migraines HTN (hypertension) SVT (supraventricular tachycardia) Right hip pain History of seizure Breast cancer Family History Family History Mother Cancer of breast Uterine cancer Father Alzheimer dementia Hx of CABG CAD (coronary artery disease) Myocardial infarction Brother Type 2 diabetes mellitus Family history of problems with anesthesia: No Surgical History Surgical History History of lumpectomy of left breast History of colonoscopy H/O breast biopsy S/P right rotator cuff repair History of Problems with Anesthesia: No Social History Social History Housing: House Alcohol intake: current Patient Tobacco Use Status: Never used Tobacco e-Cigarette/Vaping Use: Never Used Second Hand Smoke Exposure: No Use of substances other than those prescribed or required for medical reasons: No Are you DNR?: No Advance Directives: No Advance Directives Information Provided: Yes service: No Current occupational status: employed 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 Current occupational exposures/hazards: No Cognitive needs: No Hearing needs: No Vision needs: Yes (glasses) Meds Allergies Allergy/AdvReac Type Severity Reaction Status Date / Time Sulfa (Sulfonamide Allergy Severe Vomiting Verified 07/02/25 08:39 Antibiotics) Exam Airway Mallampati Class: II TM Dist: >3cm Neck ROM: Full Heart: rrr Lungs: cta Assessment and Plan Assessment Anesthesia Assessment: Anesthesia Plan Discussed Final Anesthetic Review Family History of Problems with Anesthesia: No History of Problems with Anesthesia: No NPO: Yes ASA Class: II Final Preanesthetic Review: No Changes in Pt Med Stat, Meds/Allgs Chart Reviewed and Consent Obtained/Reviewed Patient Risk: Low Procedure Risk: Low Anesthetic Plan Anesthetic Plan: MAC: Disposition: Standard PACU
[2025-06-30 13:35] VITALS: BMI 22.1
[2025-07-02 08:46] VITALS: BMI 21.3
--- NOTE | 2025-07-02 08:51 | P.HPSUR_ITS ---
Pre-Procedural Eval Section A - 24 Hr Update-Section A only Date of Service: 07/02/25 The patient is an INPATIENT: No The patient has been examined within 24 hours of the surgical procedure. The History & Physical has been completed within 30 days and I have reviewed it.: No Section B - Complete if H&P > 30 days Chief Complaint: screening Relevant Family History (Specify if Yes): No Relevant Social History: None Present Medications: see Short Stay Collaborative assessment Medical History: Significant History (SVT (supraventricular tachycardia) Right h ip pain History of seizure Cough Breast cancer Blood pressure elevated without history of HTN) History of Previous Operations: Relevant previous surgery/procedure and date(s) (History of colonoscopy H/O breast biopsy S/P right rotator cuff repair) Allergies: Allergies Allergy/AdvReac Type Severity Reaction Status Date / Time Sulfa (Sulfonamide Allergy Severe Vomiting Verified 07/02/25 08:39 Antibiotics) Review of Systems Sugical H&P ROS: Negative: Constitution, Cardiovascular, Respiratory and Gastrointestinal Exam Surgical H&P Exam: Normal: Heart, Normal: Lungs, Normal: Extremities and Normal: Abdomen Plan Diagnosis/Plan: Unchanged I have reviewed the history and physical and performed a pertinent physical examination on my patient. No changes have occurred unless specified. Time Spent With Patient Time: Total time managing care of this patient today ____ minutes.
[2025-07-02 08:52] VITALS: BP 131/76; PULSE 63; RESP 14; TEMP 36.6; O2SAT 99
[2025-07-02] MEDS: Lactated Ringers 1,000 ML 100 ML IVCONT (09:06)
--- NOTE | 2025-07-02 10:32 | P.OPN-COLO_ITS ---
Colonoscopy Operative Note Operative Note Date of Service: 07/02/25 Narrative: COLONOSCOPY TILL CECUM WITH BIOPSIES Pre-op diagnosis: Colon cancer screening. Post-op diagnosis: Colon polyp, Diverticulosis, hemorrhoids Endoscopist:? Taylor Alcala MD Anesthesia:?MAC Consent: Indications for the procedure and potential complications of bleeding, perforation, reaction to medications and missed diagnosis were discussed with the patient and informed consent was obtained. Instrument: Olympus PCF H 190 L variable stiffness pediatric colonoscope Monitoring: Vital signs and clinical assessment, intermittent blood pressure monitoring, continuous EKG monitoring, Pulse oximetry and Carbon Dioxide monitoring were done throughout the procedure. Please see anesthesia flowsheet. Colon withdrawl time was 15 minutes. Procedure: The patient was placed in the left lateral decubitis position and pre-procedure medications were administered. After a digital rectal examination of the ano-rectum, the video colonoscope was inserted into the rectum and advanced through the colon to the cecum. The colonoscope was slowly withdrawn in a retrograde panoramic fashion and the colon mucosa was carefully examined including a retroflexed view of the rectum. Findings and interventions are described below. Procedure Difficulty: Colon was long and tortuous and there was spasm and some loop formation. LLQ pressure was applied to intubate the ascending colon Findings: Terminal Ileum: Not evaluated Cecum: Normal Ascending Colon: Normal Transverse Colon: A 4-5 mm sessile polyp - removed with a cold biopsy. Descending Colon: Normal Sigmoid Colon: Moderate diverticulosis Rectum: Normal Ano-rectum: Moderate internal hemorrhoids Colon preparation: Good after some irrigation. [place] Bowel Preparation Scale Right colon; 2 Transverse colon: 2 Left colon; 2 (0 = Unprepared colon segment with mucosa not seen due to solid stool that cannot be cleared. 1 = Portion of mucosa of the colon segment seen, but other areas of the colon segment not well seen due to staining, residual stool and/or opaque liquid. 2 = Minor amount of residual staining, small fragments of stool and/or opaque liquid, but mucosa of colon segment seen well. 3 = Entire mucosa of colon segment seen well with no residual staining, small f ragments of stool or opaque liquid) Impression and Post Procedure Diagnosis: Colonoscopy Findings: One small polyp was removed Moderate diverticulosis seen in the sigmoid colon Moderate hemorrhoids on retroflexed exam. Plan: I will send a letter with biopsy results Repeat Colonoscopy in 5 years if polyps are adenomatous and 10 year if polyps are hyperplastic. (adult colonoscope for future colonoscopies) Above findings were reviewed with the patient and relevant handouts were given and the discharge area.
[2025-07-02 10:35] VITALS: BP 112/64; PULSE 67; RESP 16; TEMP 36.2; O2SAT 97
[2025-07-02 10:42] VITALS: BP 124/76; PULSE 58; RESP 14; TEMP 36.1; O2SAT 100
== END 2025-07-02 11:21 | disposition home or self-care (01) ==
PROVIDERS: PCP Internal Medicine; Visit Provider Internal Medicine Gastroenterology
PROC: 0DJD8ZZ Inspection of Lower Intestinal Tract, Via Natural or Artificial Opening Endoscopic (ICD-10-PCS; CPT 45378; principal; 2025-07-02 10:10)
DX: Z12.11 Encounter for screening for malignant neoplasm of colon (principal); K57.30 Diverticulosis of large intestine without perforation or abscess without bleeding; K64.8 Other hemorrhoids; D12.3 Benign neoplasm of transverse colon
CPT/HCPCS: 45380; 88305; J2003; J2704

== ENCOUNTER → 2025-07-02 08:17 | Outpatient (BNV) | payer OTHER, SELFPAY | PROVIDERS: PCP Internal Medicine; Visit Provider Internal Medicine Gastroenterology | DX: Z12.11 Encounter for screening for malignant neoplasm of colon (principal); K63.5 Polyp of colon; K57.30 Diverticulosis of large intestine without perforation or abscess without bleeding; K64.8 Other hemorrhoids | CPT/HCPCS: 45380 ==